=== PATIENT | female | born 1990 | race Hispanic/Latino ===

== ENCOUNTER 2020-11-07 16:47 | Emergency (ER) | payer MEDICAID ==
[~2020-11-07] VITALS: Ht 154.9 cm; Wt 64.4 kg
[2020-11-07] MEDS ORDERED: ULTRAM50 MG PO (17:03)
[2020-11-07] MEDS ORDERED: ZOFRAN4 MG PO (17:03)
== END 2020-11-07 21:06 | disposition home or self-care (01) ==
LOC: ED 16:47
DX: R10.9 Unspecified abdominal pain (principal); F17.200 Nicotine dependence, unspecified, uncomplicated; Z79.899 Other long term (current) drug therapy; Z79.891 Long term (current) use of opiate analgesic
CPT/HCPCS: 74176; 80053; 81001; 83690; 84703; 85025; 96374; 96375; 99284-25; J1170; J1885; J2405; J7030